=== PATIENT | male | born 1965 | race Caucasian/White ===

== ENCOUNTER 2020-11-24 09:34 | Emergency (ER) | payer OTHER, BC ==
[2020-11-24 09:44] VITALS: BP 142/89; PULSE 88
--- NOTE | 2020-11-24 10:10 | EDM.PDOC ---
ED HPI GENERAL MEDICAL PROBLEM - General Chief Complaint: Chest Pain Stated Complaint: [facility] BY [facility] Time Seen by Provider: 11/24/20 09:55 Source of Information: Reports: Patient History Limitations: Reports: No Limitations - History of Present Illness INITIAL COMMENTS - FREE TEXT/NARRATIVE: 55-year-old male who is a patient of the [place] [facility] here in [place]. He presen ts to the ED at their request for evaluation of chest pain. Patient reports he has been experiencing recurrent bouts of intermittent left precordial chest squeezing pressure discomfort off and on for the last 3 weeks. These attacks have occurred mostly at rest and not on exertion. 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 Denies any increased shortness of breath. History of COPD due to cigarette smoking. He is currently down to 10 to 15 cigarettes a day and chews tobacco at work as he is not allowed to smoke. No past history of coronary disease. All of the chest pains have been transient lasting perhaps 15 to 20 minutes. He has had about 3 or 4 attacks over the last 3 weeks. He does not have any chest pain at present. ECG sent from the [place] [facility] suggests early R wave progression with suggest a right ventricular perjury versus septal hypertrophy pattern but no signs of ischemia. ECG done in our emergency room reveals normal sinus rhythm with perhaps mild left atrial hypertrophy. Mildly diminished voltage in the limb leads. No signs of ischemia. Onset: Other (Patient has been experiencing left precordial chest pressure d iscomfort intermittently for the last 2 to 3 weeks. He reports the worst pain was 3 weekends ago around the October.) Duration: Minutes:, Intermittent Location: Reports: Chest (Intermittent left precordial chest pressure discomfort usually occurring at rest) Quality: Reports: Ache, Pressure (Transient.) Severity: Moderate Improves with: Reports: Other (Last episode that occurred that was most intense occurred while he was driving a motor vehicle. He was still able to continue driving the vehicle. 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 Denies: Activity, Exercise, Lifting, Sick Contact, Trauma Associated Symptoms: Reports: No Other Symptoms, Chest Pain, Cough (Intermittent cough due to cigarette smoking.), Shortness of Breath (Rare on heavy exertion.). Denies: Confusion, cough w sputum, Diaphoresis, Fever/Chills, Headaches, Loss of Appetite, Malaise, Nausea/Vomiting, Rash, Seizure, Syncope, Weakness Treatments HUMAN RESOURCES COORDINATOR: Reports: Other (see below) (No medication changes.) - Related Data Allergies Allergy/AdvReac Type Severity Reaction Status Date / Time No Known Allergies Allergy Verified 11/24/20 09:44 Home Meds: Home Meds Losartan Potassium 100 mg PO DAILY 06/23/15 [History] amLODIPine [Norvasc] 10 mg PO DAILY 06/23/15 [History] Past Medical History HEENT History: Reports: Hard of Hearing, Impaired Vision Cardiovascular History: Reports: Hypertension (Chronic hypertension controlled with amlodipine and losartan.) Gastrointestinal History: Reports: Diverticulosis - Infectious Disease History Infectious Disease History: Reports: Chicken Pox - Past Surgical History Head Surgeries/Procedures: Reports: None HEENT Surgical History: Reports: Oral Surgery Other HEENT Surgeries/Procedures: more than 10 yrs Cardiovascular Surgical History: Reports: None GI Surgical History: Reports: Other (See Below) Other GI Surgeries/Procedures: 2009 removed foot of colon Social & Family History - Family History Cardiac: Reports: Hypertension Other Cardiac Family History: HTN dad : Reports: Other (See Below) Other Family History: Mom may have had kidney stones, but unsure Oncologic: Reports: Breast Other Oncologic Family History: Mom - Tobacco Use Tobacco Use Status *Q: Current Every Day Tobacco User (Smokes approximately 10 to 15 cigarettes/day.) Tobacco Use Within Last Twelve Months: Smokeless Tobacco (Chews tobacco throughout the day as is not allowed to smoke in his workplace.) Years of Tobacco use: 35 Packs/Tins Daily: 0.5 - Alcohol Use Days Per Week of Alcohol Use: 7 Number of Drinks Per Day: 7 Total Drinks Per Week: 49 - Recreational Drug Use Recreational Drug Use: Yes Recreational Drug Type: Reports: Marijuana/Hashish Recreational Drug Use Frequency: Daily ED ROS GENERAL - Review of Systems Review Of Systems: See Below Constitutional: Reports: No Symptoms HEENT: Reports: Glasses Respiratory: Reports: No Symptoms, Shortness of Breath, Wheezing (On heavy exertion. Occasional wheezing .Had to use an albuterol inhaler when he had Covid 19 illness in October.), Cough (Mild now.) Cardiovascular: Reports: Chest Pain, Blood Pressure Problem (See history of present illness), Dyspnea on Exertion (Only on heavy exertion.). Denies: Claudication, Edema, Lightheadedness, Orthopnea ( chronic hypertension), Palpitations, PND, Syncope, Other Endocrine: Reports: Fatigue GI/Abdominal: Reports: No Symptoms : Reports: Frequency, Other (Nocturia usually x1.) Musculoskeletal: Reports: Back Pain (Occasional problems with low back pain) Skin: Reports: No Symptoms Neurological: Reports: No Symptoms Psychiatric: Reports: No Symptoms Hematologic/Lymphatic: Reports: No Symptoms Immunologic: Reports: No Symptoms ED EXAM, GENERAL - Physical Exam Exam: See Below Exam Limited By: No Limitations General Appearance: Alert, WD/WN, No Apparent Distress, Other (Temperature is 36.8. Heart rate is 88 and sinus.. Respiratory to 16 with O2 sats of 96% room air. BP 142/89.) Eye Exam: Bilateral Eye: Normal Inspection, PERRL Throat/Mouth: Normal Inspection, Normal Lips, Normal Teeth, Other (Mild diffuse oropharyngeal erythema from cigarette smoking.) Head: Atraumatic, Normocephalic Neck: Normal Inspection, Supple, Non-Tender, Full Range of Motion. No: Carotid Bruit, Lymphadenopathy (L), Lymphadenopathy (R) Respiratory/Chest: No Respiratory Distress, No Accessory Muscle Use, Decreased Breath Sounds (Bilateral expiratory wheezes on forced expiration. Mildly decreased breath sounds to the lower 20% lung marshall bilaterally.), Wheezing Cardiovascular: Normal Peripheral Pulses, Regular Rate, Rhythm, No Edema, No Gallop, No Murmur, No Rub Peripheral Pulses: 2+: Posterior Tibial (L), Posterior Tibial (R), Dorsalis Pedis (L), Dorsalis Pedis (R), 3+: Carotid (L), Carotid (R) GI/Abdominal: Normal Bowel Sounds, Soft, Non-Tender, No Organomegaly, No Abnormal Bruit, No Mass, Pelvis Stable, Other (No surgical scars) Back Exam: Normal Inspection, Full Range of Motion. No: CVA Tenderness (L), CVA Tenderness (R) Extremities: Normal Inspection, Normal Range of Motion, Non-Tender, No Pedal Edema Neurological: Alert, Oriented, CN II-XII Intact, Normal Cognition Psychiatric: Normal Affect, Normal Mood Skin Exam: Warm, Dry, Intact, Normal Color, No Rash #1 Interpretation EKG Date: 11/24/20 Time: 09:49 Rhythm: NSR Rate (Beats/Min): 84 Allison: Normal P-Wave: Enlarged (Consider mild left atrial hypertrophy.) QRS: Other (Mildly decreased voltage in the limb leads.) ST-T: Other (Diffuse early repolarization pattern most notable in the precordial leads.) QT: Normal EKG Interpretation Comments: No signs of ischemia essentially normal ECG Course - Vital Signs Last Recorded V/S: Last Vital Signs Temp 36.8 C 11/24/20 09:41 Pulse 88 11/24/20 09:41 Resp 16 11/24/20 09:41 BP 142/89 H 11/24/20 09:41 Pulse Ox 96 11/24/20 09:41 - Orders/Labs/Meds Orders: Active Orders 24 hr Category Date Time Status EKG 12 Lead [EK] Stat Ther 11/24/20 09:44 Ordered Labs: Laboratory Tests 11/24/20 11/24/20 11/24/20 Range/Units 09:55 09:55 09:55 WBC 12.31 H (4.23-9.07) K/mm3 RBC 4.86 (4.63-6.08) M/mm3 Hgb 15.5 D (13.7-17.5) gm/dl Hct 45.2 (40.1-51.0) % MCV 93.0 H (79.0-92.2) fl MCH 31.9 (25.7-32.2) pg MCHC 34.3 (32.2-35.5) g/dl RDW Std Deviation 44.0 H (35.1-43.9) fL Plt Count 218 D (163-337) K/mm3 MPV 10.2 (9.4-12.3) fl Neut % (Auto) 69.7 H (34.0-67.9) % Lymph % (Auto) 23.2 (21.8-53.1) % Mitchell % (Auto) 5.4 (5.3-12.2) % Eos % (Auto) 0.8 (0.8-7.0) Baso % (Auto) 0.7 (0.1-1.2) % Neut # (Auto) 8.56 H (1.78-5.38) K/mm3 Lymph # (Auto) 2.86 (1.32-3.57) K/mm3 Mitchell # (Auto) 0.67 (0.30-0.82) K/mm3 Eos # (Auto) 0.10 (0.04-0.54) K/mm3 Baso # (Auto) 0.09 H (0.01-0.08) K/mm3 Manual Slide Review Abnormal smear D-Dimer, Quantitative (0.19-0.50) mg/L Sodium 142 (136-145) mEq/L Potassium 4.5 (3.5-5.1) mEq/L Chloride 106 (98-107) mEq/L Carbon Dioxide 25 (21-32) mEq/L Anion Gap 15.5 H (5-15) BUN 13 (7-18) mg/dL Creatinine 0.9 (0.7-1.3) mg/dL Est Cr Clr Drug Dosing 88.75 mL/min Estimated GFR (MDRD) > 60 (>60) mL/min BUN/Creatinine Ratio 14.4 (14-18) Glucose 101 H (70-99) mg/dL Calcium 9.4 (8.5-10.1) mg/dL Magnesium 2.1 (1.8-2.4) mg/dL Total Bilirubin 0.7 (0.2-1.0) mg/dL AST 24 (15-37) U/L ALT 54 (16-63) U/L Alkaline Phosphatase 45 L (46-116) U/L CK-MB (CK-2) 1.1 (0-3.6) ng/ml Troponin I < 0.017 (0.00-0.056) ng/mL NT-Pro-B Natriuret Pep (0-125) pg/mL Total Protein 7.5 (6.4-8.2) g/dl Albumin 4.1 (3.4-5.0) g/dl Globulin 3.4 gm/dL Albumin/Globulin Ratio 1.2 (1-2) 11/24/20 11/24/20 Range/Units 09:55 09:55 WBC (4.23-9.07) K/mm3 RBC (4.63-6.08) M/mm3 Hgb (13.7-17.5) gm/dl Hct (40.1-51.0) % MCV (79.0-92.2) fl MCH (25.7-32.2) pg MCHC (32.2-35.5) g/dl RDW Std Deviation (35.1-43.9) fL Plt Count (163-337) K/mm3 MPV (9.4-12.3) fl Neut % (Auto) (34.0-67.9) % Lymph % (Auto) (21.8-53.1) % Mitchell % (Auto) (5.3-12.2) % Eos % (Auto) (0.8-7.0) Baso % (Auto) (0.1-1.2) % Neut # (Auto) (1.78-5.38) K/mm3 Lymph # (Auto) (1.32-3.57) K/mm3 Mitchell # (Auto) (0.30-0.82) K/mm3 Eos # (Auto) (0.04-0.54) K/mm3 Baso # (Auto) (0.01-0.08) K/mm3 Manual Slide Review D-Dimer, Quantitative 0.31 (0.19-0.50) mg/L Sodium (136-145) mEq/L Potassium (3.5-5.1) mEq/L Chloride (98-107) mEq/L Carbon Dioxide (21-32) mEq/L Anion Gap (5-15) BUN (7-18) mg/dL Creatinine (0.7-1.3) mg/dL Est Cr Clr Drug Dosing mL/min Estimated GFR (MDRD) (>60) mL/min BUN/Creatinine Ratio (14-18) Glucose (70-99) mg/dL Calcium (8.5-10.1) mg/dL Magnesium (1.8-2.4) mg/dL Total Bilirubin (0.2-1.0) mg/dL AST (15-37) U/L ALT (16-63) U/L Alkaline Phosphatase (46-116) U/L CK-MB (CK-2) (0-3.6) ng/ml Troponin I (0.00-0.056) ng/mL NT-Pro-B Natriuret Pep 30 (0-125) pg/mL Total Protein (6.4-8.2) g/dl Albumin (3.4-5.0) g/dl Globulin gm/dL Albumin/Globulin Ratio (1-2) - Radiology Interpretation Free Text/Narrative:: 55-year-old male presents to the ED at the request of the [place] [facility] for cardiac work-up. The history suggest he is getting intermittent left precordial chest discomfort that is not associated with exertion. He is a heavy smoker cigarette smoker for many years. He is also had COVID-19 illness in October. He was thus sent to the ED for to rule out UT and PE. His ECG shows sinus rhythm at 84/min with perhaps very minimal left atrial hypertrophy. There is a diffuse early repolarization pattern in the precordial leads but no signs of ischemia. Plan routine labs to be performed and a chest x-ray. Currently does not require any medications. - Re-Assessments/Exams Free Text/Narrative Re-Assessment/Exam: 11/24/20 11:19 White count is slightly elevated 12.31. The differential shows 70% neutrophils. Hemoglobin is 15.5 with hematocrit of 45.2. MCV is 93.0. Platelet count is 218,000. The smear reveals few bands cells seen. D-dimer was normal at 0.31. Sodium 142 with potassium 4.5. Chloride 106 with a bicarb of 25. Anion gap is 15.5. BUN is 13 with a creatinine of 0.9 and a GFR greater than 60. Glucose is 101. Calcium is 9.4. Magnesium 2.1. Liver function normal CK-MB fraction is 1.1 with a troponin I of less than 0.017. Total protein is 7.5 with an albumin fraction of 4.1. 11/24/20 11:23 Portable chest x-ray suggests mild cardiomegaly per portable technique. There is also mild prominence of the right pulmonary artery. No pneumothorax no pleural effusion no sign of vascular congestion. Bohannon to be magnified per portable technique. 11/24/20 11:29 I have spoken with the patient and indicated that on today's examination there is no evidence of heart related illness. No blood clots in the lungs. Plan will be to arrange for an ECG and Lexiscan stress test. I will contact Conrad Zapata the PA who performs these tests in her hospital. We will make the referral and fill out appropriate paperwork and have radiology department contact the patient with a time that he can have his stress test or Lexiscan carried out. It may be later this week on Tuesday or early next week. Departure - Departure Time of Disposition: 11:38 Disposition: Home, Self-Care 01 Reason for Transfer *Q: Other Condition: Fair Clinical Impression: Chest pain at rest Instructions: Nonspecific Chest Pain, Adult Referrals: Shayna Santillan MD [Primary Care Provider] - Forms: ED Department Discharge Additional Instructions: Evaluation in the emergency room today at the request of your physician or provider at the [place] [facility]. You were sent to the ED for rule out of any of the long-term effects of COVID-19 illness such as heart attack or blood clots particularly forming in the lungs. Evaluation in the ED today reveals the heart to be mildly enlarged on x-ray with clear lung marshall on chest x-ray. ECG or heart tracing was normal. There was no signs of heart attack in the past or current. Lab test also proved that there was no sign of heart attack within the last week to 10 days. No sign of heart failure and no blood clots in the lungs. Due to your chest pain primarily coming on at rest while driving etc. it is unlikely to represent a underlying heart problem but with your past history of smoking and chewing of tobacco I think it is prudent to complete investigations by way of an ECG stressed and nuclear medicine medicine stress test. This will be arranged for you through the radiology department and they will call you with an appointment time to come in usually first thing in the morning around 0700 hrs. to 0730 hrs. and the test itself takes most of the morning. In the interim no change in medications advised. Should be on a baby aspirin every day 81 mg strength. Sepsis Event Note (ED) - Evaluation Sepsis Screening Result: No Definite Risk - Focused Exam Vital Signs: Vital Signs Temp Pulse Resp BP Pulse Ox 11/24/20 09:41 36.8 C 88 16 142/89 H 96 - My Orders Last 24 Hours: My Active Orders 11/24/20 09:44 EKG 12 Lead [EK] Stat - Assessment/Plan Last 24 Hours: My Active Orders 11/24/20 09:44 EKG 12 Lead [EK] Stat
--- NOTE | 2020-11-24 11:32 | CR ---
Chest: Portable view of the chest was obtained. Comparison: No prior chest imaging is available. Heart size and mediastinum are normal. Very minimal densities are noted within the right lung base. Lungs otherwise are clear with no acute parenchymal change. Bony structures show nothing acute. Impression: 1. Minimal density within the right lung base most likely slight areas of scarring. 2. Nothing acute is suspected on portable chest x-ray. Diagnostic code #2
== END 2020-11-24 11:57 | disposition home or self-care (01) ==
LOC: JD.ED 09:34
DX: R07.2 Precordial pain (principal); R07.89 Other chest pain; I10 Essential (primary) hypertension; Z72.0 Tobacco use; Z79.899 Other long term (current) drug therapy
CPT/HCPCS: 36415; 71045; 71045-26; 80053; 82553; 83735; 83880; 84484; 85025; 85379; 93005; 93010; 99284; 99285-25

== ENCOUNTER 2025-03-12 08:38 | Emergency (ER) | payer BC, OTHER ==
[2025-03-12] MEDS ORDERED: Sodium Chloride 0.9% 10 ML Syringe FLUSH PRN (09:15)
[2025-03-12 09:53] LABS: BASOPHILS ABSOLUTE AUTO 0.1 K/mm3 (0.0-0.2); BASOPHILS PERCENT AUTO 0.6 % (0.0-1.0); EOSINOPHILS ABSOLUTE AUTO 0.1 K/mm3 (0.0-0.4); EOSINOPHILS PERCENT AUTO 0.7 % (0.0-6.0); IMMATURE GRAN ABSOLUTE AUTO 0.08 K/mm3 (0.00-0.05); IMMATURE GRAN PERCENT AUTO 0.5 % (0.0-0.4); LYMPHOCYTES ABSOLUTE AUTO 2.2 K/mm3 (1.0-4.8); LYMPHOCYTES PERCENT AUTO 13.8 % (24.0-44.0); MEAN PLATELET VOLUME 10.2 fl (9.4-12.4); MONOCYTES ABSOLUTE AUTO 1.0 K/mm3 (0.0-0.8); MONOCYTES PERCENT AUTO 6.5 % (0.0-8.0); NEUTROPHILS ABSOLUTE AUTO 12.3 K/mm3 (1.8-7.7); NEUTROPHILS PERCENT AUTO 77.9 % (41.0-71.0); NRBC ABSOLUTE 0.00 (0.00-0.02); NRBC PERCENT 0.0 % (0.0-0.2); PLATELET COUNT,PLT 246 K/mm3 (150-400); RED BLOOD CELL COUNT 4.60 M/mm3 (4.52-5.90); WHITE BLOOD CELL COUNT,WBC 15.78 K/mm3 (3.9-11.3)
[2025-03-12] MEDS: Sodium Chloride 0.9% 10 ML Syringe FLUSH PRN (10:11)
[2025-03-12] MEDS: Iopamidol 612 MG/ML 100 ML Bottle IVPUSH ONE (10:11)
[2025-03-12 10:15] LABS: A/G RATIO 0.7 (1-2); ALANINE AMINOTRANSFERASE,ALT 43.0 U/L (16-63); ASPARTATE AMNIOTRANSFERASE,AST 25.0 U/L (15-37); BILIRUBIN TOTAL 0.6 mg/dL (0.2-1.0); BLOOD UREA NITROGEN,BUN 22.0 mg/dL (7-18); CARBON DIOXIDE,CO2 29.0 mEq/L (21-32); CHLORIDE,CL 101.0 mEq/L (98-107); CREATININE 1.2 mg/dL (0.7-1.3); EST CRCL DRUG DOSING (CG) 63.5 mL/min; ESTIMATED GFR 71.0 mL/min (>60); GLUCOSE RANDOM 106.0 mg/dL (70-99); PROTEIN TOTAL,TP 6.8 g/dl (6.4-8.2); SODIUM,NA 139.0 mEq/L (136-145)
[2025-03-12 10:16] LABS: POTASSIUM,K 2.9 mEq/L (3.5-5.1)
[2025-03-12 20:17] VITALS: BP 106/66; PULSE 94
== END 2025-03-12 14:38 | disposition home or self-care (01) ==
LOC: JD.ED 08:38
DX: K57.32 Diverticulitis of large intestine without perforation or abscess without bleeding (principal); I10 Essential (primary) hypertension; F17.200 Nicotine dependence, unspecified, uncomplicated; Z79.899 Other long term (current) drug therapy
CPT/HCPCS: 36415; 74177; 80053; 83690; 85025; 96360; 99284; J7030; Q9967